=== PATIENT | female | born 1935 | race Caucasian/White ===

== ENCOUNTER 2021-03-04 17:10 | Inpatient (IN) | payer MEDICARE, OTHER ==
[2021-03-04] MEDS ORDERED: Aspirin 81 MG Tab.EC PO ONE (17:37)
--- NOTE | 2021-03-04 17:38 | EDM.PDOC ---
ED HPI GENERAL MEDICAL PROBLEM - General Chief Complaint: Cardiovascular Problem Stated Complaint: chest discomfort Time Seen by Provider: 03/04/21 17:30 Source of Information: Reports: Patient History Limitations: Reports: No Limitations - History of Present Illness INITIAL COMMENTS - FREE TEXT/NARRATIVE: patient presented to the ER with a c/o central chest pain for the last 2 hrs - described as achy - mainly on the right side of chest and radiating to the RUE. No fever or chills. no cough or SOB. Reports a h/o CAD in the past with stents placement > 10yrs ago. no abd pain, N/V/D. Have tried Aspirin 81mg and a NG SL X1 at home but no response. Pain isn't triggered by movement or food and isn;t relieved with anything specific. Started while watching TV. Onset: Sudden Duration: Hour(s): (2) Location: Reports: Chest Quality: Reports: Ache Severity: Mild Improves with: Reports: None Worsens with: Reports: None - Related Data Allergies Allergy/AdvReac Type Severity Reaction Status Date / Time No Known Allergies Allergy Verified 03/04/21 17:37 Home Meds: Home Meds Losartan/Hydrochlorothiazide [Losartan-HCTZ 100-12.5 MG] 1 tab PO DAILY 03/04/21 [History] Metoprolol Succinate 25 mg PO DAILY 03/04/21 [History] atorvaSTATin [Lipitor] 40 mg PO DAILY 03/04/21 [History] ED ROS GENERAL - Review of Systems Review Of Systems: See Below Constitutional: Reports: No Symptoms HEENT: Reports: No Symptoms Respiratory: Reports: No Symptoms GI/Abdominal: Reports: No Symptoms Musculoskeletal: Reports: No Symptoms Skin: Reports: No Symptoms Neurological: Reports: No Symptoms Psychiatric: Reports: No Symptoms ED EXAM, GENERAL - Physical Exam Exam: See Below Exam Limited By: No Limitations General Appearance: Alert, WD/WN, No Apparent Distress Eye Exam: Bilateral Eye: EOMI, PERRL Head: Atraumatic Respiratory/Chest: No Respiratory Distress, Lungs Clear Cardiovascular: Normal Peripheral Pulses, Regular Rate, Rhythm GI/Abdominal: Normal Bowel Sounds, Soft Back Exam: Normal Inspection Extremities: Normal Inspection Neurological: Alert, Oriented, No Motor/Sensory Deficits Psychiatric: Normal Affect #1 Interpretation EKG Date: 03/04/21 Rhythm: NSR [place]: Normal P-Wave: Present QRS: Normal ST-T: Normal QT: Normal Course - Vital Signs Last Recorded V/S: Last Vital Signs Temp 36.4 C 03/04/21 17:30 Pulse 94 03/04/21 17:30 Resp 18 03/04/21 17:30 BP 128/64 03/04/21 17:30 Pulse Ox 95 03/04/21 17:30 - Orders/Labs/Meds Orders: Active Orders 24 hr Category Date Time Status EKG Documentation Completion [RC] ASDIRECTED Care 03/04/21 17:37 Active Chest 1V Frontal [CR] Stat Exams 03/04/21 17:37 Taken Heparin Sodium/D5W [Heparin 25,000 Units in D5W 500 ML] Med 03/04/21 18:45 Ordered 25,000 units in 500 ml IV TITRATE Labs: Laboratory Tests 03/04/21 03/04/21 03/04/21 Range/Units 17:37 17:37 17:37 WBC 7.2 (4.0-11.0) K/uL RBC 3.84 (3.80-5.80) M/uL Hgb 11.2 L (11.5-16.5) g/dL Hct 34.0 L (37.0-47.0) % MCV 89 (76-96) fL MCH 29.2 (27.0-32.0) pg MCHC 32.9 (31.0-35.0) g/dL RDW 13.5 (11.0-16.0) % Plt Count 280 D (150-500) K/uL MPV 9.3 (6.0-10.0) fL D-Dimer, Quantitative 1290 H (0-400) ng/mL Sodium 138 (136-145) mmol/L Potassium 3.7 (3.5-5.1) mmol/L Chloride 101 (98-107) mmol/L Carbon Dioxide 26.1 (21.0-32.0) mmol/L Anion Gap 14.6 (5.0-15.0) mmol/L BUN 40 H D (8-26) mg/dL Creatinine 1.40 H (0.55-1.02) mg/dL Est Cr Clr Drug Dosing 21.10 mL/min Estimated GFR (MDRD) 36 L (>60) MLS/MIN BUN/Creatinine Ratio 28.6 H (6-25) Glucose 129 H (74-100) mg/dL Calcium 9.1 (8.5-10.1) mg/dL Troponin I < 0.017 (0.000-0.060) ng/mL Meds: Medications Discontinued Medications Generic Name Dose Route Start Last Admin Trade Name Gerardq PRN Reason Stop Dose Admin Al Hydroxide/Mg Hydroxide 30 ml 03/04/21 18:08 03/04/21 17:30 Gi Cocktail Oral Solution 30 Ml PO 03/04/21 18:09 30 ml ONETIME ONE Administration Aspirin 162 mg 03/04/21 17:37 03/04/21 18:00 Aspirin 81 Mg Tab.Ec PO 03/04/21 17:38 162 mg ONETIME ONE Administration - Re-Assessments/Exams Free Text/Narrative Re-Assessment/Exam: vitals WNL EKG NSR labs - normal trop, but significant for elevation in Cr 1.4. Ddimer was also significantly elevated > 1000 concerns for PE - unfortunately unable to obtain a CT study with contrast due to the RENETTA and only 1 kidney. For this reason, discussed with patient the concerns for PE - given her symptoms. Decision to start IV heparin drip, then bridge to Coumadin - given its safe protocol with renal impairment. will admit to the floor for drip management Departure - Departure Time of Disposition: 18:41 Disposition: Admitted As Inpatient 66 Condition: Good Clinical Impression: D-dimer, elevated, RENETTA (acute kidney injury) Chest pain Qualifiers: Chest pain type: unspecified Qualified Code(s): R07.9 - Chest pain, unspecified Instructions: Nonspecific Chest Pain, Adult, [id number], Dehydration, Elderly, Quyi-kg-Revs Referrals: PCP,None [Primary Care Provider] - Forms: ED Department Discharge Sepsis Event Note (ED) - Evaluation Sepsis Screening Result: No Definite Risk - Focused Exam Vital Signs: Vital Signs Temp Pulse Resp BP Pulse Ox 03/04/21 17:30 36.4 C 94 18 128/64 95 - Problem List & Annotations (1) RENETTA (acute kidney injury) SNOMED Code(s): 12162131, 25730003 Code(s): N17.9 - ACUTE KIDNEY FAILURE, UNSPECIFIED Status: Acute Priority: Low Current Visit: Yes (2) Chest pain SNOMED Code(s): 49849341 Code(s): R07.9 - CHEST PAIN, UNSPECIFIED Status: Acute Priority: Medium Current Visit: Yes Qualifiers: Chest pain type: unspecified Qualified Code(s): R07.9 - Chest pain, unspecified (3) D-dimer, elevated SNOMED Code(s): 620513716 Code(s): R79.89 - OTHER SPECIFIED ABNORMAL FINDINGS OF BLOOD CHEMISTRY Status: Acute Priority: Low Current Visit: Yes - Problem List Review Problem List Initiated/Reviewed/Updated: Yes - My Orders Last 24 Hours: My Active Orders 03/04/21 17:37 EKG Documentation Completion [RC] ASDIRECTED Chest 1V Frontal [CR] Stat 03/04/21 18:45 Heparin Sodium/D5W [Heparin 25,000 Units in D5W 500 ML] 25,000 units in 500 ml IV TITRATE - Assessment/Plan Last 24 Hours: My Active Orders 03/04/21 17:37 EKG Documentation Completion [RC] ASDIRECTED Chest 1V Frontal [CR] Stat 03/04/21 18:45 Heparin Sodium/D5W [Heparin 25,000 Units in D5W 500 ML] 25,000 units in 500 ml IV TITRATE Plan: - admission to floor IV hepatin drip for VTE protocol trend troponin start Coumadin resume home meds
[2021-03-04] MEDS ORDERED: GI Cocktail Oral Solution 30 ML PO ONE (18:08)
[2021-03-04] MEDS ORDERED: Heparin Sodium 5,000 UNITS/0.5 ML Syringe IVPUSH ONE (19:00)
[2021-03-04] MEDS: Heparin Sodium/D5W 25,000 UNITS/500 ML BAG IV SCH (19:17)
[2021-03-05] MEDS ORDERED: Warfarin 5 MG Tab PO ONE (00:04)
[2021-03-05] MEDS ORDERED: Warfarin 5 MG Tab ONE (00:27)
--- NOTE | 2021-03-05 12:09 | CR ---
DATE OF SERVICE: 03/04/2021 CLINICAL DATA: CP. AP CHEST: Comparison is made to a prior exam dated 06/04/2017. The heart size is normal. The aorta is calcified and ectatic. The lungs are clear. No pneumothorax. No pleural effusions. No evidence of acute intrathoracic disease. [id number] MTDD
--- NOTE | 2021-03-05 13:30 | PCM.HP.2 ---
H&P History of Present Illness - General Date of Service: 03/05/21 Admit Problem/Dx: Admission Diagnosis/Problem Admission Diagnosis/Problem Chest pain Source of Information: Patient History Limitations: Reports: No Limitations - History of Present Illness Initial Comments - Free Text/Narative: patient presented to the ER with a c/o central chest pain 2 hrs prior to present ation to the ER - described as achy - mainly on the right side of chest and radiating to the RUE. No fever or chills. no cough or SOB. Reports a h/o CAD in the past with stents placement > 10yrs ago. no abd pain, N/V/D. In the ER, her EKG was WNL, labs were ordered including CBC, Trop and Ddimer. CBC and Trop WNL, but ddimer was significantly elevated - given the low GFR and presence of just one kidney - concerns for PE - decision was to start treatment without delay. IV heparin was started. 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: Musculoskeletal History: Reports: Arthritis Social & Family History - Tobacco Use Tobacco Use Status *Q: Former Tobacco User Used Tobacco, but Quit: Yes Month/Year Tobacco Last Used: 1992 Second Hand Smoke Exposure: No - Caffeine Use Caffeine Use: Reports: Coffee - Recreational Drug Use Recreational Drug Use: No H&P Review of Systems - Review of Systems: Review Of Systems: See Below General: Reports: No Symptoms HEENT: Reports: No Symptoms Pulmonary: Reports: Cough Cardiovascular: Reports: Chest Pain Gastrointestinal: Reports: No Symptoms Genitourinary: Reports: No Symptoms Musculoskeletal: Reports: No Symptoms Skin: Reports: No Symptoms Psychiatric: Reports: No Symptoms Exam - Exam Exam: See Below - Vital Signs Vital Signs: Last Vital Signs Temp 37.0 C 03/05/21 08:00 Pulse 73 03/05/21 08:00 Resp 18 03/05/21 08:00 BP 137/53 L 03/05/21 08:00 Pulse Ox 96 03/05/21 08:00 Weight: 67.132 kg - Exam Quality Assessment: No: Supplemental Oxygen General: Alert, Oriented, Cooperative HEENT: PERRLA Neck: Supple Lungs: Clear to Auscultation, Normal Respiratory Effort Cardiovascular: Regular Rate, Regular Rhythm GI/Abdominal Exam: Normal Bowel Sounds, Soft, Non-Tender Extremities: Normal Inspection Neuro Extensive - Mental Status: Alert, Oriented x3, Normal Mood/Affect Neuro Extensive - Motor, Sensory, Reflexes: CN II-XII Intact, Normal Gait Psychiatric: Alert, Normal Affect - Patient Data Lab Results Last 24 hrs: Laboratory Results - last 24 hr 03/04/21 03/04/21 03/04/21 Range/Units 17:37 17:37 17:37 WBC 7.2 (4.0-11.0) K/uL RBC 3.84 (3.80-5.80) M/uL Hgb 11.2 L (11.5-16.5) g/dL Hct 34.0 L (37.0-47.0) % MCV 89 (76-96) fL MCH 29.2 (27.0-32.0) pg MCHC 32.9 (31.0-35.0) g/dL RDW 13.5 (11.0-16.0) % Plt Count 280 D (150-500) K/uL MPV 9.3 (6.0-10.0) fL PT (9.0-11.5) sec INR (1.0-3.5) APTT (24.4-33.2) SECONDS D-Dimer, Quantitative 1290 H (0-400) ng/mL Sodium 138 (136-145) mmol/L Potassium 3.7 (3.5-5.1) mmol/L Chloride 101 (98-107) mmol/L Carbon Dioxide 26.1 (21.0-32.0) mmol/L Anion Gap 14.6 (5.0-15.0) mmol/L BUN 40 H D (8-26) mg/dL Creatinine 1.40 H (0.55-1.02) mg/dL Est Cr Clr Drug Dosing 21.10 mL/min Estimated GFR (MDRD) 36 L (>60) MLS/MIN BUN/Creatinine Ratio 28.6 H (6-25) Glucose 129 H (74-100) mg/dL Calcium 9.1 (8.5-10.1) mg/dL Troponin I < 0.017 (0.000-0.060) ng/mL SARS-CoV-2 RNA ([facility]) (NEGATIVE) 03/04/21 03/04/21 03/04/21 Range/Units 18:42 19:00 23:09 WBC (4.0-11.0) K/uL RBC (3.80-5.80) M/uL Hgb (11.5-16.5) g/dL Hct (37.0-47.0) % MCV (76-96) fL MCH (27.0-32.0) pg MCHC (31.0-35.0) g/dL RDW (11.0-16.0) % Plt Count (150-500) K/uL MPV (6.0-10.0) fL PT 9.9 (9.0-11.5) sec INR 1.0 (1.0-3.5) APTT 81.8 H (24.4-33.2) SECONDS D-Dimer, Quantitative (0-400) ng/mL Sodium (136-145) mmol/L Potassium (3.5-5.1) mmol/L Chloride (98-107) mmol/L Carbon Dioxide (21.0-32.0) mmol/L Anion Gap (5.0-15.0) mmol/L BUN (8-26) mg/dL Creatinine (0.55-1.02) mg/dL Est Cr Clr Drug Dosing mL/min Estimated GFR (MDRD) (>60) MLS/MIN BUN/Creatinine Ratio (6-25) Glucose (74-100) mg/dL Calcium (8.5-10.1) mg/dL Troponin I (0.000-0.060) ng/mL SARS-CoV-2 RNA ([facility]) Negative (NEGATIVE) 03/05/21 03/05/21 03/05/21 Range/Units 03:41 09:00 09:00 WBC (4.0-11.0) K/uL RBC (3.80-5.80) M/uL Hgb (11.5-16.5) g/dL Hct (37.0-47.0) % MCV (76-96) fL MCH (27.0-32.0) pg MCHC (31.0-35.0) g/dL RDW (11.0-16.0) % Plt Count (150-500) K/uL MPV (6.0-10.0) fL PT (9.0-11.5) sec INR (1.0-3.5) APTT 91.1 H* 56.3 H D (24.4-33.2) SECONDS D-Dimer, Quantitative (0-400) ng/mL Sodium (136-145) mmol/L Potassium (3.5-5.1) mmol/L Chloride (98-107) mmol/L Carbon Dioxide (21.0-32.0) mmol/L Anion Gap (5.0-15.0) mmol/L BUN (8-26) mg/dL Creatinine (0.55-1.02) mg/dL Est Cr Clr Drug Dosing mL/min Estimated GFR (MDRD) (>60) MLS/MIN BUN/Creatinine Ratio (6-25) Glucose (74-100) mg/dL Calcium (8.5-10.1) mg/dL Troponin I < 0.017 (0.000-0.060) ng/mL SARS-CoV-2 RNA ([facility]) (NEGATIVE) Result Diagrams: 03/04/21 17:37 03/04/21 17:37 Sepsis Event Note - Evaluation Sepsis Screening Result: No Definite Risk - Focused Exam Vital Signs: Vital Signs Temp Pulse Resp BP Pulse Ox 03/05/21 08:00 37.0 C 73 18 137/53 L 96 - Problem List (1) RENETTA (acute kidney injury) SNOMED Code(s): 57596784, 88594936 ICD Code: N17.9 - ACUTE KIDNEY FAILURE, UNSPECIFIED Status: Acute Priority: Low Current Visit: Yes (2) Chest pain SNOMED Code(s): 24681656 ICD Code: R07.9 - CHEST PAIN, UNSPECIFIED Status: Acute Priority: Medium Current Visit: Yes Qualifiers: Chest pain type: unspecified Qualified Code(s): R07.9 - Chest pain, unspecified (3) D-dimer, elevated SNOMED Code(s): 793570279 ICD Code: R79.89 - OTHER SPECIFIED ABNORMAL FINDINGS OF BLOOD CHEMISTRY Status: Acute Priority: Low Current Visit: Yes Problem List Initiated/Reviewed/Updated: Yes Orders Last 24hrs: Active Orders 24 hr Category Date Time Status Admission Status [Patient Status] [ADT] Routine ADT 03/04/21 19:02 Active CULTURE MRSA SURVEY [RM] Routine Lab 03/04/21 23:25 Received INR,PT,PROTHROMBIN TIME [COAG] DAILY Lab 03/06/21 07:00 Ordered INR,PT,PROTHROMBIN TIME [COAG] DAILY Lab 03/07/21 07:00 Ordered INR,PT,PROTHROMBIN TIME [COAG] DAILY Lab 03/08/21 07:00 Ordered Heparin Sodium/D5W [Heparin 25,000 Units in D5W 500 ML] Med 03/04/21 18:45 Active 25,000 units in 500 ml IV TITRATE Warfarin [Coumadin] Med 03/05/21 18:00 Active 5 mg PO DAILY@1800 Medication Orders Heparin Sodium/Dextrose (Heparin 25,000 Units In D5w 500 Ml) 25,000 units in 500 mls @ 24.494 mls/hr IV TITRATE CHERRI; Protocol Last Titration: 03/05/21 05:20 Dose: 13 units/kg/hr, 17.69 mls/hr Documented by: NURIS Cosigned by: SHAMA Titration: 03/05/21 00:25 Dose: 16 units/kg/hr, 21.772 mls/hr Documented by: SHAMA Cosigned by: NURIS Admin: 03/04/21 19:17 Dose: 18 units/kg/hr, 24.494 mls/hr Documented by: IFRAH Cosigned by: SHAMA Warfarin Sodium (Warfarin 5 Mg Tab) 5 mg PO DAILY@1800 CHERRI Stop: 03/07/21 18:01 Assessment/Plan Comment:: 1- chest pain: resolved after a nitro SL and GI cocktail 2- elevation in ddimer - concerns for PE: heparin IV drip was started. bridging to Coumadin - INR goal 2-3. Coumadin for 6 months after d/c 3- RENETTA: Ct higher than baseline. patient with one kidney - continue to monitor. avoid nephrotic agent. 4- DVT: Coumadin bridging resume home meds as before - Mortality Measure Prognosis:: Good
[2021-03-05] MEDS ORDERED: Pantoprazole 40 MG Delayed-Release Granules 1 Packet PO SCH (13:45)
[2021-03-05] MEDS ORDERED: Omeprazole 20 MG Cap.CR ONE (14:22)
[2021-03-05] MEDS: Omeprazole 20 MG Cap.CR PO SCH (14:28)
[2021-03-05] MEDS: Warfarin 5 MG Tab PO SCH (17:51)
[2021-03-05] MEDS: Heparin Sodium/D5W 25,000 UNITS/500 ML BAG IV SCH (19:43)
[2021-03-05] MEDS: Melatonin 10 MG Cap PO SCH (21:24)
[2021-03-06] MEDS: Omeprazole 20 MG Cap.CR PO SCH (07:28)
[2021-03-06] MEDS ORDERED: Heparin Sodium 5,000 Units/ML Vial IVPUSH ONE (17:00)
[2021-03-06] MEDS ORDERED: Heparin Sodium 5,000 Units/ML Vial ONE (17:04)
[2021-03-06] MEDS: Warfarin 5 MG Tab PO SCH (17:59)
[2021-03-06] MEDS: Melatonin 10 MG Cap PO SCH (21:27)
[2021-03-06] MEDS: Heparin Sodium/D5W 25,000 UNITS/500 ML BAG IV SCH (21:54)
--- NOTE | 2021-03-07 00:14 | PN ---
DATE OF VISIT: 03/06/2021 HISTORY OF PRESENT ILLNESS: This is an 85-year-old lady who was admitted for suspected PE. She had an elevated D-dimer due to kidney issues. She could not have a CT scan with PE protocol. The patient was started on heparin bridging to Coumadin. She has been doing well. She had some chest discomfort upon arrival, which resolved with nitroglycerin given in the ER. Today upon entering the room, the patient is sitting in her chair. She is smiley. She states that she feels very good. She is not having any symptoms of chest pain, discomfort, shortness of breath, coughing, or wheezing. Labs reveal her most recent PTT is 56.3. PHYSICAL EXAMINATION: LUNGS: Clear to auscultation. CARDIAC: Heart sounds are distinct without murmur. SKIN: Warm and dry. EXTREMITIES: There is no lower extremity edema noted. VITAL SIGNS: This morning are good. Blood pressure 140/49, O2 sats 96% on room air, pulse 67, and she is afebrile. TREATMENT PLAN: At this point, we will continue to monitor the patient, and as soon as her Coumadin level becomes therapeutic, she can be discharged home. The patient is agreeable with this treatment plan. Her granddaughter had a question about a possible inhaler for history of COPD. In reviewing the most recent chest x-ray, there is no mention of COPD- type changes, so her COPD condition is very minimal. We will discuss this further when I see her tomorrow. She tells me that she has an inhaler at home and a nebulizer, but has not used either one in years. WALE/MODL /[id number]
[2021-03-07] MEDS: Omeprazole 20 MG Cap.CR PO SCH (07:40)
[2021-03-07] MEDS ORDERED: Enoxaparin 80 MG/0.8 ML Syringe SUBCUT SCH (08:00)
[2021-03-07] MEDS ORDERED: Enoxaparin 60 MG/0.6 ML Syringe SUBCUT SCH (09:30)
--- NOTE | 2021-03-08 09:14 | CR ---
DATE OF SERVICE: 03/07/21 CLINICAL DATA: Rule out PE. PA AND LATERAL CHEST: Comparison is made to a prior exam dated 03/04/21. The heart size is normal. The aorta is calcified and ectatic. There is a linear density in the left mid lung consistent with linear atelectasis or fibrosis. There is very subtle increased density in the left lung base adjacent to the left hemidiaphragm consistent with basilar atelectasis or infiltrate. The right lung remains clear. No pneumothorax. No pleural effusions. [id number] [facility]
== END 2021-03-07 14:40 | disposition home or self-care (01) | DRG 313 ==
LOC: LB.ED 17:10 → LB.MS 19:02 → UNDOADMIN 19:28
PROVIDERS: ADMIT Surgery; ATTEND Surgery
DX: R07.9 Chest pain, unspecified (principal); N17.9 Acute kidney failure, unspecified; R79.1 Abnormal coagulation profile; I25.10 Atherosclerotic heart disease of native coronary artery without angina pectoris; J44.9 Chronic obstructive pulmonary disease, unspecified; Z20.822 Contact with and (suspected) exposure to COVID-19; M19.90 Unspecified osteoarthritis, unspecified site; Z87.891 Personal history of nicotine dependence; Z95.5 Presence of coronary angioplasty implant and graft; Z79.899 Other long term (current) drug therapy; I25.2 Old myocardial infarction
CPT/HCPCS: 36415; 71045; 71046; 80048; 84484; 85027; 85379; 85610; 85730; 93005; 99285-25; A9270-GY; J1644; J1644-GY; J1650; U0002

== ENCOUNTER 2024-12-26 07:01 | Emergency (ER) | payer MEDICARE, OTHER ==
[2024-12-26] MEDS: Albuterol 0.083% 2.5 MG/3 ML Neb Soln NEB ONE (07:51)
[2024-12-26 08:07] LABS: BASOPHILS ABSOLUTE AUTO 0.01 K/uL (0.02-0.10); BASOPHILS PERCENT AUTO 0.1 % (0.0-0.5); HEMATOCRIT 35.3 % (37.0-47.0); HEMOGLOBIN 12.2 g/dL (11.5-16.5); LYMPHOCYTES ABSOLUTE AUTO 0.85 K/uL (1.50-4.00); LYMPHOCYTES PERCENT AUTO 9.1 % (20.0-40.0); MEAN CORPUSCULAR HEMOGLOBIN 30.3 pg (27.0-32.0); MEAN CORPUSCULAR HGB CONC 34.6 g/dL (31.0-35.0); MEAN CORPUSCULAR VOLUME 88 fL (76-96); MEAN PLATELET VOLUME 9.2 fL (6.0-10.0); MONOCYTES ABSOLUTE AUTO 0.75 K/uL (0.20-0.80); NEUTROPHILS ABSOLUTE AUTO 7.76 K/uL (2.00-7.50); NEUTROPHILS PERCENT AUTO 82.8 % (45.0-70.0); PLATELET COUNT,PLT 158 K/uL (150-500); RED BLOOD CELL COUNT 4.02 M/uL (3.80-5.80); WHITE BLOOD CELL COUNT,WBC 9.4 K/uL (4.0-11.0)
[2024-12-26 08:31] LABS: ANION GAP 4.6 mmol/L (5.0-15.0); BUN/CREATININE RATIO 16.7 (6-25); CALCIUM 8.8 mg/dL (8.5-10.1); CARBON DIOXIDE,CO2 30.3 mmol/L (21.0-32.0); CREATININE 1.08 mg/dL (0.55-1.02); EST CRCL DRUG DOSING (CG) 25.36 mL/min; POTASSIUM,K 3.9 mmol/L (3.5-5.1)
[2024-12-26 08:37] LABS: INFLUENZA A NAA NEGATIVE (NEGATIVE); INFLUENZA B NAA NEGATIVE (NEGATIVE); RESPIRATORY SYNCYTIAL VIR NAA POSITIVE (NEGATIVE)
[2024-12-26 08:43] LABS: CORONAVIRUS COVID-19 NAA NEGATIVE (NEGATIVE)
[2024-12-26] MEDS: Sodium Chloride 0.9% 10 ML Syringe FLUSH PRN (09:05)
[2024-12-26] MEDS: Sodium Chloride 0.9% 1,000 ML IV ONE (09:08)
[2024-12-26] MEDS: Sodium Chloride 0.9% 500 ML IV ONE (09:20)
== END 2024-12-26 10:53 | disposition home or self-care (01) ==
LOC: LB.ED 07:01
DX: J18.9 Pneumonia, unspecified organism (principal); I25.2 Old myocardial infarction; Z88.0 Allergy status to penicillin; Z79.899 Other long term (current) drug therapy
CPT/HCPCS: 0241U; 36415; 80048; 85025; 94640; 96360; 96361; 99284; 99285-25; A9270-GY; J7040

== ENCOUNTER 2025-01-18 06:35 | Emergency (ER) | payer MEDICARE, OTHER ==
[2025-01-18] MEDS: Ondansetron 4 MG Tab.DIS PO ONE (07:19)
[2025-01-18] MEDS: Ketorolac 10 MG Tab PO ONE ×2 (07:25)
[2025-01-18] MEDS ORDERED: Morphine 2 MG/ML SYRINGE SUBCUT SCH (07:30)
== END 2025-01-18 09:15 | disposition home or self-care (01) ==
LOC: LB.ED 06:35
DX: S46.912A Strain of unspecified muscle, fascia and tendon at shoulder and upper arm level, left arm, initial encounter (principal); J44.9 Chronic obstructive pulmonary disease, unspecified; E11.9 Type 2 diabetes mellitus without complications; Z86.16 Personal history of COVID-19; Z90.49 Acquired absence of other specified parts of digestive tract; Z87.891 Personal history of nicotine dependence; Z90.710 Acquired absence of both cervix and uterus; Z88.0 Allergy status to penicillin; Z79.899 Other long term (current) drug therapy
CPT/HCPCS: 72125; 99283; A9270; Q0162

== ENCOUNTER 2025-01-24 09:41 | Emergency (ER) | payer MEDICARE, OTHER ==
[2025-01-24] MEDS: Orphenadrine 60 MG/2 ML Inj IM ONE (10:12)
[2025-01-24] MEDS: Ketorolac 15 MG/ML SDV IM ONE (10:12)
[2025-01-24] MEDS ORDERED: Cyclobenzaprine 10 MG Tab ONE (11:00)
== END 2025-01-24 11:16 | disposition home or self-care (01) ==
LOC: LB.ED 09:41
DX: S39.012A Strain of muscle, fascia and tendon of lower back, initial encounter (principal); I25.10 Atherosclerotic heart disease of native coronary artery without angina pectoris; I25.2 Old myocardial infarction; J44.9 Chronic obstructive pulmonary disease, unspecified; E11.9 Type 2 diabetes mellitus without complications; Z90.49 Acquired absence of other specified parts of digestive tract; Z95.5 Presence of coronary angioplasty implant and graft; Z88.0 Allergy status to penicillin; Z79.899 Other long term (current) drug therapy; W01.0XXA Fall on same level from slipping, tripping and stumbling without subsequent striking against object, initial encounter; Y93.K1 Activity, walking an animal
CPT/HCPCS: 72100; 96372; 99283; A9270-GY; J1885; J2360